=== PATIENT | female | born 1990 | race Caucasian/White ===

== ENCOUNTER → 2019-05-15 15:58 | Outpatient (BNVA) | payer OTHER, SELFPAY | PROVIDERS: Visit Provider Obstetrics & Gynecology | DX: Z34.92 Encounter for supervision of normal pregnancy, unspecified, second trimester (principal) | CPT/HCPCS: 81003; 87491; 87591 ==

== ENCOUNTER → 2019-06-15 09:59 | Outpatient (BNVA) | payer OTHER, SELFPAY | PROVIDERS: Visit Provider Obstetrics & Gynecology | DX: Z01.89 Encounter for other specified special examinations (principal) | CPT/HCPCS: 84315 ==

== ENCOUNTER → 2019-06-19 14:01 | Outpatient (BNVA) | payer OTHER, MEDICAID, SELFPAY | PROVIDERS: Referring Provider Obstetrics & Gynecology; Visit Provider Obstetrics & Gynecology | DX: O30.002 Twin pregnancy, unspecified number of placenta and unspecified number of amniotic sacs, second trimester (principal) | CPT/HCPCS: 76815 ==

== ENCOUNTER → 2019-07-10 10:02 | Outpatient (BNVA) | payer OTHER, MEDICAID, SELFPAY | PROVIDERS: Visit Provider Obstetrics & Gynecology | DX: Z36.89 Encounter for other specified antenatal screening (principal); O30.042 Twin pregnancy, dichorionic/diamniotic, second trimester; Z3A.20 20 weeks gestation of pregnancy | CPT/HCPCS: 76805; 76810 ==

== ENCOUNTER → 2019-07-14 09:08 | Outpatient (BNVA) | payer OTHER, SELFPAY | PROVIDERS: Visit Provider Obstetrics & Gynecology | DX: Z01.89 Encounter for other specified special examinations (principal) | CPT/HCPCS: 84315 ==

== ENCOUNTER → 2019-08-07 08:15 | Outpatient (BNVA) | payer OTHER, SELFPAY | PROVIDERS: Visit Provider Obstetrics & Gynecology | DX: Z01.89 Encounter for other specified special examinations (principal) | CPT/HCPCS: 84315 ==

== ENCOUNTER → 2019-08-15 13:10 | Outpatient (BNVA) | payer OTHER, MEDICAID, SELFPAY | PROVIDERS: Visit Provider Obstetrics & Gynecology | DX: Z36.89 Encounter for other specified antenatal screening (principal); O30.002 Twin pregnancy, unspecified number of placenta and unspecified number of amniotic sacs, second trimester; Z3A.25 25 weeks gestation of pregnancy | CPT/HCPCS: 76816 ==

== ENCOUNTER → 2019-09-04 13:25 | Outpatient (BNVA) | payer OTHER, MEDICAID, SELFPAY | PROVIDERS: Visit Provider Obstetrics & Gynecology | DX: Z34.90 Encounter for supervision of normal pregnancy, unspecified, unspecified trimester (principal); O26.899 Other specified pregnancy related conditions, unspecified trimester; Z67.91 Unspecified blood type, Rh negative; O30.009 Twin pregnancy, unspecified number of placenta and unspecified number of amniotic sacs, unspecified trimester; Z3A.28 28 weeks gestation of pregnancy | CPT/HCPCS: 76816; 82950; 84315; 85027; 86850 ==

== ENCOUNTER 2019-10-12 08:48 | Outpatient (CLI) | payer OTHER, MEDICAID, SELFPAY ==
--- NOTE | 2019-10-12 08:51 | US_ITS ---
WS: [id number] US OB BPP wo NST twins REASON FOR EXAM: Twin Gestation FINDINGS: The cervix was normal measured 5.07 cm and appeared to be closed. Lesions are identified. The heart rate fetus a 150 beats for minute. Twin B heart rate 126 beats for minute. Biophysical profile normal breathing, movement, tone, amniotic fluid with a reading of 8/8. The fetus appears to be at 33 weeks 4 days gestation expected date of confinement November 26, 2019. US/US OB BPP wo NST twins IMPRESSION: Twin pregnancies both appear to be viable Biophysical profile 8/8 The fetuses are at 33 weeks 4 days gestation, expected date of confinement November 26, 2019. Anterior placenta is seen.
[2019-10-12 08:52] VITALS: RESP 17; TEMP 36.9
[2019-10-12 08:57] VITALS: BP 109/60; PULSE 84
[2019-10-12 09:02] VITALS: BMI 33.6
[2019-10-12 09:27] VITALS: BP 118/65; PULSE 77
[2019-10-12 09:57] VITALS: BP 114/65; PULSE 80
[2019-10-12 12:10] VITALS: BP 114/65; PULSE 80
--- NOTE | 2019-10-12 17:03 | PM.ACPR ---
NST (Non-Stress Test) NST : 3 Para: 2,002 Due date: 11/25/25 Gestational age (weeks): 31 Indications: Dichorionic diamniotic twin gestation in third trimester at 31-4/7 weeks gestation Test: NST Time: 08:55 Length of test in Minutes: 29 Contractions: irregular Fetus Fetus 1: Baseline FHR BMP:: 120 Variability: Moderate Accelerations: Present Decelerations: None Reacticity: Reactive Fetus 2: Baseline FHR BMP:: 125 Variability: Moderate Accelerations: Present Decelerations: None Reacticity: Reactive Interpretation/Plan Interpretation by: Austin Page Comments: Twin with reactive NST of each fetus. Irregular contractions present. Biophysical profiles pending
== END 2019-10-12 12:10 | disposition home or self-care (01) ==
LOC: OPOB 08:50 → OBGYN 08:51
PROVIDERS: Visit Provider Obstetrics & Gynecology
DX: O30.009 Twin pregnancy, unspecified number of placenta and unspecified number of amniotic sacs, unspecified trimester (principal); Z3A.00 Weeks of gestation of pregnancy not specified
CPT/HCPCS: 12345; 59025; 76819; 99211

== ENCOUNTER 2019-10-19 10:49 | Outpatient (CLI) | payer OTHER, MEDICAID, SELFPAY ==
[2019-10-19] VITALS (11 sets, daily range): BP systolic 108; BP diastolic 65; PULSE 73–96; RESP 18; TEMP 37; O2SAT 98–99; BMI 35.6
[2019-10-19] MEDS: terbutaline 1 mg/mL INJ 0.25 MG SUBCUT (11:10)
== END 2019-10-19 13:10 | disposition home or self-care (01) ==
PROVIDERS: Visit Provider Obstetrics & Gynecology
DX: O26.899 Other specified pregnancy related conditions, unspecified trimester (principal); Z3A.00 Weeks of gestation of pregnancy not specified; R10.9 Unspecified abdominal pain
CPT/HCPCS: 59025; 84315; 87081; 96372; 99211; J3105

== ENCOUNTER 2019-10-19 23:15 | Inpatient (IN) | payer OTHER, MEDICAID, SELFPAY ==
[2019-10-19 23:10] VITALS: BMI 35.6
[2019-10-19 23:33] VITALS: BP 133/70; PULSE 77
[2019-10-19 23:46] LABS: Basophils # 0.1 10^3/uL (0.0-0.1); Basophils % 0.4 %; Eosinophils % 0.2 %; Hematocrit 33.6 % (37.0-47.0); Hemoglobin 11.2 g/dL (11.5-15.3); Lymphocytes % 25.1 %; Mean Corpuscular HGB Conc 33.3 g/dL (30.0-36.0); Mean Corpuscular Hemoglobin 31.2 pg (28.0-34.0); Mean Corpuscular Volume 93.6 fL (81-99); Mean Platelet Volume 14.1 fL (7.4-10.4); Monocytes % 8.7 %; Neutrophils # 7.8 10^3/uL (1.8-7.7); Neutrophils % 65.3 %; Nucleated Red Blood Cells % 0 %; Platelet Count 128 10^3/cmm (130-400); Red Blood Count 3.59 10^6/uL (4.1-5.3); White Blood Count 11.9 10^3/uL (4.0-10.0)
[2019-10-19 23:47] LABS: Slide Review Slide Review Perform
--- NOTE | 2019-10-19 23:48 | P.HP_ITS ---
Providers/Chief Complaint Admitting Physician: Austin Page MD Primary REVIEW TRAINER: Austin Page MD Chief Complaint: ob triage HPI REVIEW TRAINER History of Present Illness Ella River is a 28 year old female white female 3, para 2-0-0-2 with an LMP of 02/19/2019 and an EDC of 11/26/2019 based on LMP and consistent with a 17- week ultrasound. She has known dichorionic diamniotic twins. She arrived to labor and delivery at approximately 23:30 with complaint of po ssible ruptured membranes. She reports that at about 21:30 she had a gush of fluid and continued to leak. She stated contractions became painful following that. She denied any vaginal bleeding. She reports presence of movement. Review of Systems Const: Denies: fever(s), chills, change in weight or fatigue ENMT: Denies: throat pain or nasal congestion Card: Denies: chest pain or palpitations Resp: Denies: dyspnea, productive cough, non-productive cough or wheezing GI: Denies: abdominal pain, nausea or vomiting : Denies: dysuria, genital pruritis, vaginal bleeding or vaginal discharge Neuro: Denies: headache(s), dizziness or seizure-like activity Psych: Denies: anxiety or depression Endo: Denies: cold intolerance Flako/Lymph: Denies: easy bruising or easy bleeding Medications/Allergies Home Medications Medication Instructions Recorded Confirmed Last Taken Type PNV 153-FA 400 mcg-om3 35 mg-dha See Rx Instructions PO DAILY tab 05/12/19 10/19/19 10/12/19 08:00 History 25 mg-epa 5 mg-fish oil chew tablet ferrous sulfate 325 mg (65 mg 325 mg PO BID 07/14/19 10/19/19 10/12/19 08:00 History iron) tablet folic acid 0.8 mg capsule 0.8 mg PO DAILY 07/14/19 10/19/19 10/12/19 08:00 History diphenhydramine HCl 25 mg capsule 25 mg PO TID PRN 09/04/19 10/19/19 Unknown History famotidine 20 mg tablet 20 mg PO BID #60 tab 10/05/19 10/19/19 10/12/19 08:00 Rx Allergies Allergy/AdvReac Type Severity Reaction Status Date / Time No Known Allergies Allergy Verified 10/19/19 08:05 PFS REVIEW TRAINER PFSH: Medical History No pertinent past medical history Denies diabetes, asthma, hypertension, seizures, DVT/PE Surgical History No history of previous surgery Family History Father Hyperlipidemia Family/Other No problems noted. Social History Smoking and tobacco status: current every day smoker cigarettes Packs smoked per day: 0.25 Years cigarettes smoked: 8 [ Other cigarette details: Started age 20. Most smoked 1 ppd. Denies vaping. ] Alcohol intake: never Substance/Drug Use: never Other details last substance use: Denies drug use Additional social history: Well balanced diet Other Female Reproductive History: Hx Age of Menarche: 11 Duration of menses: 3-5 days Cycle Length: regular History History History 3 Term 2 Miscarriages/Ectopic 0 Living Children 2 Past Pregnancies Del. Date GA/Weeks Outcome Route Wt Inf Gender Labor Lgth Comp. Anesth esia Location 10/03/07 40 live - full term Vaginal 7 lb 14 oz Male [facility] in [place], [place]. 04/09/16 41 live - full term Vaginal 6 lb Female regional Delivered at [facility] in [place], [place] Delivery Date: 10/03/07 named Jules. Delivery by Dr. Austin Page. Denied complications. Austin Page Delivery Date: 04/09/16 named Audelia. Denied complications. Austin Page Care JEANINE Calculator Estimated Delivery Date Method Current WG Current Estimate 11/26/19 LMP (Certain) 34w 4d Other Estimates 11/23/19 Ultrasound #1 35w 0d 11/26/19 Ultrasound #2 34w 4d # 2 Expected Delivery Route/Plan vaginal Specific Issues/Plans * Smoker, * Twin gestation (Male/Female), * Rh Negative. * LGSIL Pap smear-reassess * Desires sterilization * GERD controlled on medication Vitals/I&O/Wt Last Vital Signs Pulse 77 10/19/19 23:33 BP 133/70 10/19/19 23:33 Physical Exam Const: COMMON NORMALS: no acute distress, average body habitus, alert and well nourished GENERAL APPEARANCE: well developed ORIENTATION/CONSCIOUSNESS: Yes oriented to person, Yes oriented to place and Yes oriented to time Resp: COMMON NORMALS: normal respiratory effort and clear to auscultation bilaterally AUSCULTATION: clear to auscultation bilaterally Cardio: COMMON NORMALS: regular rate, regular rhythm, No gallops present (Cardio), No murmurs present (Cardio) and No rub (Cardio) RATE: regular rate RHYTHM: regular rhythm GI: COMMON NORMALS: Soft to palpation, non-tender, No hepatosplenomegaly present and no masses (Except for gravid uterus) AUSCULTATION: Yes normoactive bowel sounds PALPATION: Yes Soft to palpation, Yes No hepatosplenomegaly present and No Hernia present : EXTERNAL FEMALE EXAM: No Hernia present OTHER: Cervix 5 cm dilated per nurse. Grossly ruptured. Neuro: SENSORIUM/ORIENTATION: Yes alert, Yes oriented to person, Yes oriented to place and Yes oriented to time Psych: COMMON NORMALS: normal affect MOOD & AFFECT: Yes euthymic mood Data : 10/19/19 23:23 Other data: Bedside ultrasound performed which showed both babies to be transverse with the presenting one being back down. Both heads were to maternal right. A&P Assessment and plan (1) Multiple gestation with one or more malpresentations in third trimester: Status: Acute (2) premature rupture of membranes: Status: Acute Qualifiers: PROM onset of labor timing: onset of labor within 24 hours of rupture Qualified Code(s): O42.019 - premature rupture of membranes, onset of labor within 24 hours of rupture, unspecified trimester (3) labor: Status: Acute Qualifiers: labor trimester: third trimester (4) Twin : Status: Acute Qualifiers: Multiple gestation type: dichorionic and diamniotic Trimester: third trimester Qualified Code(s): O30.043 - Twin , dichorionic/diamniotic, third trimester (5) Gastroesophageal reflux in in third trimester: Status: Acute (6) Rh negative status during : Status: Acute Qualifiers: Trimester: third trimester Qualified Code(s): O26.893 - Other specified related conditions, third trimester; Z67.91 - Unspecified blood type, Rh negative (7) Request for sterilization: Status: Acute Additional A&P Information at 34-4/7 weeks gestation dichorionic, diamniotic twin gestation with grossly ruptured membranes and labor. The babies are both transverse lie. Based upon position, she is not a candidate for vaginal delivery. Since she is also an active labor, decision is made to proceed to delivery which will be by section. Risks of section were discussed with the patient including bleeding to the point of needing a blood transfusion, infection, and injury to intra-abdominal organs including bowel, bladder, blood vessels, nerves, and ureters. Patient had also stated during the that she did not want any further children and wanted to have her tubes tied. Medicaid consent form had been signed on 09/04/2019. At this point she is still adamant that she wishes to proceed with sterilization and wants the tubes completely removed. I reviewed with her that this type of sterilization can never be reversed. She is still adamant that she wishes to proceed with this. Patient is being prepared for a primary section with bilateral tubal ligation. Circuit Board Repair Technician on-call, Dr. Ferrer, has been notified. Attestations Medical Necessity Statement*: Patient in active labor with ruptured membranes with twin gestation. Coding Level of Care Code Acute People Greeter for Chg Fwd Diagnoses Multiple gestation with one or more malpresentations in third trimester O30.93; O32.9XX0 premature rupture of membranes O42.019 PROM onset of labor timing: onset of labor within 24 hours of rupture labor O60.00 labor trimester: third trimester Twin O30.043 Multiple gestation type: dichorionic and diamniotic Trimester: third trimester Gastroesophageal reflux in in third trimester O99.613; K21.9 Rh negative status during O26.893; Z67.91 Trimester: third trimester Request for sterilization Z30.2
[2019-10-19] MEDS: citric acid-sodium citrate 30 mL UDC PO (23:53)
[2019-10-19] MEDS: famotidine 20 mg/2 mL INJ IVP (23:54)
[2019-10-19] MEDS: metoclopramide 5 mg/mL SDV 2 mL 10 MG IVP (23:54)
[2019-10-19] MEDS: lactated ringers 1,000 ML 999 ML IV (23:56)
[2019-10-20] VITALS (26 sets, daily range): BP systolic 98–142; BP diastolic 58–102; PULSE 61–101; RESP 16–18; TEMP 36.5–36.7; O2SAT 97–98
--- NOTE | 2019-10-20 00:04 | P.ANESASSM_ITS ---
Pre-Anesthetic Assessment Pre-Anesthetic Assessment: Height/Weight: Height 1.57 m Pulse BP 77 133/70 10/19/19 23:33 10/19/19 23:33 Preop Diagnosis: IUP Proposed Procedure: Spinal Familial anesthetic complications: None Was Beta Pierce taken within 24 hours: N/A Last intake: Solids 1430 Liquids (water) 2130 Social: Social History: Tobacco and No alcohol Exam: Pre-Anes Outpt Exam: alert, oriented x 3, clear to auscultation bilaterally and regular rate & rhythm Airway: Cervical ROM: WNL MP: 3 Dentition: Chipped Additional comments: Missing Anesthetic Plan: ASA status: 2E Anesthesia: Regional (specify below) Risk of > 500 ml blood loss (7ml/kg in children): Yes, adequate IV access and fluids planned Other Pertinent Information: twins Meds/Allergies Current Medications: Current Medications Generic Name Dose Route Start Last Admin Trade Name Freq PRN Reason Stop Dose Admin Lactated Ringer's 1,000 mls @ 999 m ls/hr 10/19/19 23:39 10/19/19 23:56 Lactated Ringers IV 10/20/19 00:39 999 mls/hr .Q1H1M ONE Administration PFSH Anesthesia PFSH: Medical History No pertinent past medical history Denies diabetes, asthma, hypertension, seizures, DVT/PE Surgical History No history of previous surgery Family History Father Hyperlipidemia Family/Other No problems noted. Social History Smoking and tobacco status: current every day smoker cigarettes Packs smoked per day: 0.25 Years cigarettes smoked: 8 [ Other cigarette details: Started age 20. Most smoked 1 ppd. Denies vaping. ] Alcohol intake: never Substance/Drug Use: never Other details last substance use: Denies drug use Additional social history: Well balanced diet Data Anesthesia CBC & Chem 7: 10/19/19 23:23 Other Labs: Laboratory Results - last 48 hr 10/19/19 23:23 WBC 11.9 H RBC 3.59 L Hgb 11.2 L Hct 33.6 L MCV 93.6 MCH 31.2 MCHC 33.3 RDW 13.0 Plt Count 128 L MPV 14.1 H Neut % (Auto) 65.3 Lymph % (Auto) 25.1 Kingfisher % (Auto) 8.7 Eos % (Auto) 0.2 Baso % (Auto) 0.4 Neut # (Auto) 7.8 H Lymph # (Auto) 3.0 Kingfisher # (Auto) 1.0 H Eos # (Auto) 0.0 Baso # (Auto) 0.1 Nucleated RBC % (auto) 0 Nucleated RBCs # 0.0 Cardiac Studies: No Data to Display
[2019-10-20] MEDS: miSOPROStol 200 mcg Tablet 800 MCG PR (00:34)
[2019-10-20] MEDS: oxytocin 30 UNIT/500 ML BAG 600 UNIT IV (00:35)
--- NOTE | 2019-10-20 00:47 | PM.DELIVERY ---
Delivery Note: Date of delivery: October 20, 2019 Pre-delivery diagnoses: 1. premature rupture of membranes in third trimester 2. labor in third trimester 3. Dichorionic diamniotic twin gestation with malpresentation of both fetuses. 4. Maternal Rh- status in third trimester 5. at 34-5/7 weeks gestation Post-delivery diagnoses: 1. premature rupture of membranes in third trimester - delivered 2. labor in third trimester - delivered 3. Dichorionic diamniotic twin gestation with malpresentation of both fetuses. 4. Maternal Rh- status - delivered 5. at 34-5/7 weeks gestation 6. Viable twin newborns (male/female) Procedure: Spontaneous vaginal delivery of twins gestation (breech/breech). Op report anesthesia: None Delivering Physician: Dr. Austin Page Estimated blood loss (mL): 150 Pre-Delivery Course: Patient is a 28-year-old white female 3, para 2-0-0-2 with dichorionic diamniotic twin gestation with an LMP of 02/19/2019 and an EDC of 11/26/2019 based on LMP and consistent with a 17-week ultrasound. She presented to L&D at 23:05 on 10/19/2019 complaining of rupture of membranes and contractions. She reported having a gush of fluid at about 21:30 with onset of contractions afterwards. On presentation to L&D, she was noted to be grossly ruptured and reported to be 5 cm dilated by the nurse. Nurse was unsure of presentation. (In the office earlier, she was noted to be breech/breech). On my arrival, bedside ultrasound was performed which confirmed transverse lie of both fetuses with head to maternal right. Because of the ruptured membranes, labor, and malpresentation presenting fetus, decision was made to proceed to a section. Delivery: Just before taking patient to the operating room, patient reported that something did not feel right and was hurting more. Exam was performed and buttocks was found to be at a +3 station. Patient pushed once and the buttocks delivered. The rest the baby rapidly delivered up to the shoulders. The baby was rotated in a counterclockwise direction and the right arm was swept out. The baby was rotated in a clockwise direction and the left arm was swept out. The body of the baby was elevated and head quickly delivered. Time of delivery was 00:12 and this was a male baby. Baby was spontaneously crying. Cord was clamped and cut and baby handed off to Dr. Ferrer and the waiting nurses. Internal uterine exam was performed and the buttocks was presenting towards the cervix. Membranes were ruptured at 00:17 and with maternal pushing the buttocks was directed through the cervix and vagina. Following delivery of the buttocks, both legs were swept out and the baby was delivered up to the shoulders. It was rotated in a clockwise direction and the left arm was swept out. It was rotated in a counterclockwise direction and the right arm was swept out. The body of the baby was elevated and the head easily delivered. Time of delivery for Baby B was 00:20 and it was a girl. The cord was clamped and cut and the baby was handed off to Dr. Ferrer and the waiting nurses. Cord blood was obtained from both umbilical cords. Pitocin bolus was started. Placenta delivered intact by simple expression at 00:30. Cervix and vagina were palpated and noted to be intact. Labia were inspected and noted be intact except for superficial abrasions which required no repair. Patient received 800 mcg of Cytotec rectally prophylactically. FINDINGS 1. Baby A - Male, asael breech delivery, delivery time 00:12, weight 5 lb 2.5 oz (2340 g), length 18 in, APGARS 9 at 1 minute and 9 at 5 minutes. 2. Baby B - Female, asael breech delivery, delivery time 00:20, weight 4 lb 9 oz (2070 g), length 18 in, APGARS 9 at 1 minute and 9 at 5 minutes. 3. Three-vessel cords with no nuchal cords. 4. Fused placenta. Baby A cord was a membranous cord insertion with the cord inserting approximately 5 cm from the edge of the placental disc. Baby B cord was an eccentric insertion in the placental disc. Post-Delivery Status: Babies were transferred to the nursery. Mother was left to recover in satisfactory condition. A&P Assessment and plan (1) labor: Status: Acute Qualifiers: labor trimester: third trimester (2) Gastroesophageal reflux in in third trimester: Status: Acute (3) Rh negative status during : Status: Acute Qualifiers: Trimester: third trimester Qualified Code(s): O26.893 - Other specified related conditions, third trimester; Z67.91 - Unspecified blood type, Rh negative (4) Multiple gestation with malpresentation of one fetus or more, delivered: Status: Acute (5) premature rupture of membranes, delivered, current hospitalization: Status: Acute (6) Twin , delivered vaginally, current hospitalization: Status: Acute Coding Level of Care Code Acute Recreation Facility Attendant for Chg Fwd Diagnoses labor O60.00 labor trimester: third trimester Gastroesophageal reflux in in third trimester O99.613; K21.9 Rh negative status during O26.893; Z67.91 Trimester: third trimester Multiple gestation with malpresentation of one fetus or more, delivered O30.90; O32.9XX0 premature rupture of membranes, delivered, current hospitalization O42.919 Twin , delivered vaginally, current hospitalization O30.009
--- NOTE | 2019-10-20 01:29 | PM.ACPR ---
Procedure/Consent Procedure Narrative: Called by nurse due to heavy bleeding and passing clots. Nurse had rubbed the uterus at time of routine checking and found uterus to be above the navel. Multiple clots were expressed. At approximatley 01:00, I performed a bimanual exam and expressed several more clots from the uterus. The uterus was then firm and was 1 fingerbreath below umbilicus. At this point, patient was receiving IV Pitocin and and had previously received Cytotec 800 mcg rectally. She was then started on IV Tranexamic acid EBL: 385 ml by weight (of clots and blood).
[2019-10-20] MEDS: carboprost tromethamine 250 mcg/mL Amp IM (02:03)
[2019-10-20] MEDS: prenatal vitamin Capsule 1 CAP PO (10:04)
[2019-10-20] MEDS: docusate sodium 100 mg Capsule PO (10:06)
--- NOTE | 2019-10-20 10:40 | PC.NURSE ---
IV Removal This nurse removed second peripheral IV 18G in right hand that was placed at 0245 by Mariana Jimenez RN. Catheter was intact upon removal. Patient tolerated procedure well.
--- NOTE | 2019-10-20 12:21 | PC.RESP ---
Smoking Cessation information and a schedule of classes to patient.
--- NOTE | 2019-10-20 12:30 | PM.DCS ---
Discharge Providers Date of Admission: 10/19/19 23:15 Date of Discharge: October 20, 2019 Attending Provider at Admission: Austin Page MD Attending Provider at Discharge: Austin Page MD Diagnoses at Discharge Discharge Diagnosis (1) labor: Status: Resolved Qualifiers: Fetus number: fetus 2 of multiple gestation labor delivery status: with delivery in third trimester labor trimester: third trimester Qualified Code(s): O60.14X2 - labor third trimester with delivery third trimester, fetus 2 (2) Gastroesophageal reflux in in third trimester: Status: Resolved (3) Rh negative status during : Status: Acute Qualifiers: Trimester: third trimester Qualified Code(s): O26.893 - Other specified related conditions, third trimester; Z67.91 - Unspecified blood type, Rh negative (4) Multiple gestation with malpresentation of one fetus or more, delivered: Status: Resolved (5) premature rupture of membranes, delivered, current hospitalization: Status: Resolved (6) Twin , delivered vaginally, current hospitalization: Status: Acute Reason for Visit Reason for Visit: ob triage Hospital Course Hospital Course: Patient is a 28-year-old white female 3, para 2-0-0-2 with an LMP of 02/19/2019 and an EDC of 11/26/2019 based on LMP and consistent with a 17-week ultrasound. She was known to have dichorionic diamniotic twins. She presented to labor and delivery complaining of possible rupture membranes. She was found to be grossly ruptured. Water had broke at approximately 21: 30. She had started tootie following that. Both babies were noted to be transverse transverse presentation. As a result, she was being prepared for primary section. Just prior to going to the OR, patient was reporting feeling neck something was not right and when checked the buttocks was at a +2 station. As a result the first baby was delivered as a vaginal breech. Second baby was also delivered as a asael breech delivery. No lacerations were present. She delivered on 10/20/2019. Baby A - Male, asael breech delivery, delivery time 00:12, weight 5 lb 2.5 oz (2340 g), length 18 in, APGARS 9 at 1 minute and 9 at 5 minutes. Baby B - Female, asael breech delivery, delivery time 00:20, weight 4 lb 9 oz (2070 g), length 18 in, APGARS 9 at 1 minute and 9 at 5 minutes. Following delivery, she had bleeding. She had been given IV Pitocin immediately following delivery and was prophylactically given Cytotec 800 mcg rectally. Following increased bleeding, she was also given tranexamic acid and then Hemabate. She then had no further increased bleeding. By later in the day of day of delivery, patient was doing well. Due to the baby's having been transferred out of the hospital, patient was wanting to be released. By noon she was tolerating a regular diet without nausea vomiting. Her pain was well controlled. She was ambulating without lightheadedness or dizziness. Her bleeding was well controlled. She was having no other issues or concerns. Physical exam: As documented below. Plan Discharged to home. Discharge instructions discussed with patient. Patient to follow-up in the office in approximately 6 weeks. Physical Exam Const: COMMON NORMALS: no acute distress, average body habitus, alert and well nourished GENERAL APPEARANCE: well developed ORIENTATION/CONSCIOUSNESS: Yes oriented to person, Yes oriented to place and Yes oriented to time Resp: COMMON NORMALS: normal respiratory effort and clear to auscultation bilaterally AUSCULTATION: clear to auscultation bilaterally Cardio: COMMON NORMALS: regular rate, regular rhythm, No gallops present (Cardio) and No rub (Cardio) RATE: regular rate RHYTHM: regular rhythm GI: COMMON NORMALS: Soft to palpation, non-tender, No hepatosplenomegaly present and no masses AUSCULTATION: Yes normoactive bowel sounds PALPATION: Yes Soft to palpation, Yes No hepatosplenomegaly present and No Hernia present : EXTERNAL FEMALE EXAM: No Hernia present Extremity: COMMON NORMALS: no calf tenderness GENERAL: Yes edema (1+ lower extremity) Neuro: SENSORIUM/ORIENTATION: Yes alert, Yes oriented to person, Yes oriented to place and Yes oriented to time Psych: COMMON NORMALS: normal affect MOOD & AFFECT: Yes euthymic mood Discharge Data Data Completed and Pending: Pending at discharge Category Date Time Status Hemagram Timed Lab 10/20/19 10:00 Ordered Pathology: Surgic al [PTH] Routine Pth 10/20/19 11:45 Ordered Labs from last 24 hours 10/19/19 10/19/19 23:23 23:23 WBC 11.9 H RBC 3.59 L Hgb 11.2 L Hct 33.6 L MCV 93.6 MCH 31.2 MCHC 33.3 RDW 13.0 Plt Count 128 L MPV 14.1 H Neut % (Auto) 65.3 Lymph % (Auto) 25.1 [place] % (Auto) 8.7 Eos % (Auto) 0.2 Baso % (Auto) 0.4 Neut # (Auto) 7.8 H Lymph # (Auto) 3.0 [place] # (Auto) 1.0 H Eos # (Auto) 0.0 Baso # (Auto) 0.1 Nucleated RBC % (a uto) 0 Nucleated RBCs # 0.0 Blood Type O Negative Rho(D) Type Negative Vitals: Last Vital Signs Temp 97.9 F 10/20/19 11:20 Pulse 91 10/20/19 11:20 Resp 18 10/20/19 11:20 BP 103/64 10/20/19 11:20 Pulse Ox 97 10/20/19 11:20 Discharge Plan Discharge Patient Disposition: Home, Self-Care Condition: Stable Prescriptions: New ibuprofen 800 mg Tablet 800 mg PO TID PRN (Reason: pain) Qty: 40 RF: 0 Continued Gummies 400 mcg-35 mg- 25 mg-5 mg tablet,chewable See Rx Instructions PO DAILY RF: 0 diphenhydramine HCl [Benadryl] 25 mg capsule 25 mg PO TID PRN (Reason: Allergy Symptoms) RF: 0 Discontinued folic acid 0.8 mg capsule 0.8 mg PO DAILY RF: 0 ferrous sulfate 325 mg (65 mg iron) tablet 325 mg PO BID RF: 0 famotidine [Pepcid] 20 mg tablet 20 mg PO BID Qty: 60 RF: 3 Discharge Orders: Discharge Order (Routine); Ordered 10/20/19 Ordered By: Austin Page Referrals: Austin Page MD [Physician] - 12/01/19 1:00 pm ( exam ) Discharge Diet: Regular Discharge Activity: Resume usual activity Patient Instructions: Ibuprofen (By mouth), Diphenhydramine (By mouth), Vitamins (By mouth), OB Discharge Report, OB Proud Parent Packet, OB Vaginal Deliveries - [facility] Discharge Date/Time: 10/20/19 14:00 Discharge Attestations Time Spent in Discharge Care*: less than 30 min Quality Metrics Clinical Quality Measures During this hospital stay, did patient experience: None Coding Level of Care Code Acute Display Card Writer for Chg Fwd Exam Detailed Diagnoses labor O60.14X2 Fetus number: fetus 2 of multiple gestation labor delivery status: with delivery in third trimester labor trimester: third trimester Gastroesophageal reflux in in third trimester O99.613; K21.9 Rh negative status during O26.893; Z67.91 Trimester: third trimester Multiple gestation with malpresentation of one fetus or more, delivered O30.90; O32.9XX0 premature rupture of membranes, delivered, current hospitalization O42.919 Twin , delivered vaginally, current hospitalization O30.009
[2019-10-20 12:36] LABS: Hemoglobin 8.7 g/dL (11.5-15.3); Mean Corpuscular HGB Conc 33.5 g/dL (30.0-36.0); Mean Corpuscular Hemoglobin 31.1 pg (28.0-34.0); Mean Corpuscular Volume 92.9 fL (81-99); Mean Platelet Volume 13.8 fL (7.4-10.4); Platelet Count 102 10^3/cmm (130-400); Red Cell Distribution Width 12.8 % (12.1-15.1); White Blood Count 9.5 10^3/uL (4.0-10.0)
== END 2019-10-20 14:00 | disposition home or self-care (01) | DRG 807 ==
LOC: OPOB 23:22 → OBGYN 23:22 → OPOB 10-20 00:35 → OBGYN 10-20 00:35
PROVIDERS: Admitting Provider Obstetrics & Gynecology; Visit Provider Obstetrics & Gynecology
DX: O60.14X2 Preterm labor third trimester with preterm delivery third trimester, fetus 2 (principal); Z37.2 Twins, both liveborn; O30.043 Twin pregnancy, dichorionic/diamniotic, third trimester; O99.334 Smoking (tobacco) complicating childbirth; F17.210 Nicotine dependence, cigarettes, uncomplicated; O99.284 Endocrine, nutritional and metabolic diseases complicating childbirth; K21.9 Gastro-esophageal reflux disease without esophagitis; Z30.2 Encounter for sterilization; Z3A.34 34 weeks gestation of pregnancy; O64.8XX1 Obstructed labor due to other malposition and malpresentation, fetus 1; O64.8XX2 Obstructed labor due to other malposition and malpresentation, fetus 2; O42.013 Preterm premature rupture of membranes, onset of labor within 24 hours of rupture, third trimester
CPT/HCPCS: 12345; 36415; 59025; 59409; 80500; 83986; 85025; 85027; 85460; 86850; 86870; 86900; 88307; 90384; 96372; 96375; 99211; J2274; J2590; J2765; J3490

== ENCOUNTER → 2019-12-01 14:00 | Outpatient (BNVA) | payer OTHER, MEDICAID, SELFPAY | PROVIDERS: Visit Provider Obstetrics & Gynecology | DX: R87.612 Low grade squamous intraepithelial lesion on cytologic smear of cervix (LGSIL) (principal); Z39.2 Encounter for routine postpartum follow-up | CPT/HCPCS: 88175 ==

== ENCOUNTER → 2019-12-06 14:27 | Outpatient (BNVA) | payer OTHER, SELFPAY | PROVIDERS: Visit Provider Obstetrics & Gynecology | DX: Z30.09 Encounter for other general counseling and advice on contraception (principal); Z30.017 Encounter for initial prescription of implantable subdermal contraceptive | CPT/HCPCS: 81025 ==

== ENCOUNTER → 2020-12-02 09:20 | Outpatient (BNVA) | payer OTHER, SELFPAY | PROVIDERS: Visit Provider Obstetrics & Gynecology | DX: Z01.419 Encounter for gynecological examination (general) (routine) without abnormal findings (principal); R68.82 Decreased libido; R87.612 Low grade squamous intraepithelial lesion on cytologic smear of cervix (LGSIL) | CPT/HCPCS: 84403; 84443; 88175 ==

== ENCOUNTER → 2021-01-02 13:45 | Outpatient (BNVA) | payer OTHER, SELFPAY | PROVIDERS: Visit Provider Obstetrics & Gynecology | DX: Z30.09 Encounter for other general counseling and advice on contraception (principal); Z30.2 Encounter for sterilization | CPT/HCPCS: 87635 ==

== ENCOUNTER 2021-01-07 06:11 | Day surgery (SDC) | payer OTHER, MEDICAID, SELFPAY ==
[2021-01-06 08:23] VITALS: BMI 27.4
[2021-01-07] VITALS (7 sets, daily range): BP systolic 99–119; BP diastolic 63–81; PULSE 64–99; RESP 12–18; TEMP 36.1–36.5; O2SAT 97–99
[2021-01-07] MEDS: acetaminophen 1,000 MG/100 ML PIGGYBACK 400 MG IV (06:40)
[2021-01-07] MEDS: sodium chloride 0.9% 1,000 ML 30 ML IV (06:45)
--- NOTE | 2021-01-07 06:58 | W.PM.OPSUD ---
Surgery/Procedure H&P Update DATE OF PROCEDURE: January 07, 2021 DATE H&P PERFORMED: 01/02/21 H&P UPDATE INFORMATION: I have reviewed H&P completed within last 30 days, I have examined patient prior to procedure and No changes to prior documentation PREOP DIAGNOSIS: desires sterilization PLANNED PROCEDURE: Operation Date: 01/07/21 07:00 Proposed Procedures p Laparoscopic bilateral Salpingectomy 88387 z30.2(Bilateral) - Fe Fry MD
[2021-01-07] MEDS: ketorolac 30 mg/mL INJ IVP (07:00)
[2021-01-07] MEDS: CELEcoxib 200 mg Capsule 400 MG PO (07:00)
[2021-01-07] MEDS: gabapentin 300 mg Capsule PO (07:00)
--- NOTE | 2021-01-07 07:00 | P.ANESASSM_ITS ---
Pre-Anesthetic Assessment Pre-Anesthetic Assessment: Height/Weight: Height 1.57 m Weight 68.039 kg Temp Pulse Resp BP Pulse Ox 97.3 F L 84 18 102/63 97 01/07/21 06:32 01/07/21 06:32 01/07/21 06:32 01/07/21 06:32 01/07/21 06:32 Preop Diagnosis: desires sterilization Proposed Procedure: Operation Date: 01/07/21 07:00 Proposed Procedures p Laparoscopic bilateral Salpingectomy 98228 z30.2(Bilateral) - Fe Fry MD Was Beta Pierce taken within 24 hours: N/A Was Clonidine taken within 24 hours: N/A Last intake: Intake Last Liquid Date 01/06/21 Last Liquid Time 21:00 Last Solid Date 01/06/21 Last Solid Time 21:00 Social: Social History: Tobacco Packs per day: 1 Pack years: 15 Exam: Pre-Anes Outpt Exam: alert, oriented x 3, clear to auscultation bilaterally and regular rate & rhythm Airway: Submandibular: WNL Cervical ROM: WNL MP: 1 Dentition: Chipped and Partials History/ROS: No significant history except as noted and No significant c omplaints Pulmonary: Pulmonary: None reported CV/HEM: CV/HEM: None reported : : None reported Hepatic: Hepatic: None reported GI: GI: None reported Metabolic: Metabolic: None reported Musc/skel: Musc/skel: None reported Anesthetic Plan: ASA status: 2 Anesthesia: Anesthesia Evaluation and General Risk of > 500 ml blood loss (7ml/kg in children): No PFSH Anesthesia PFSH: Medical History Abnormal Pap smear of cervix 05/15/2019: Low-grade MARCELA. Blood type O- Surgical History No history of previous surgery Family History Father Hyperlipidemia Family/Other No problems noted. Grandfather Cancer Maternal - unsure of type-spread all over Sister Stroke Denies family history of Diabetes CAD (coronary artery disease) Clotting disorder Chronic kidney disease (CKD) Bleeding disorder Hypertension Thyroid disease Social History Smoking and tobacco status: current every day smoker cigarettes Packs smoked per day: 0.25 Years cigarettes smoked: 8 [ Other cigarette details: Started age 20. Most smoked 1 ppd. Denies vaping. ] Alcohol intake: never Other details last substance use: Denies drug use Female Reproductive History: Date of last menstrual period: 12/31/20 Data Anesthesia Cardiac Studies: No Data to Display
[2021-01-07 07:05] LABS: OR HCG Qualitative Urine Negative (Negative)
[2021-01-07 07:10] LABS: Basophils # 0.1 10^3/uL (0.0-0.1); Basophils % 0.6 %; Eosinophils # 0.1 10^3/uL (0.0-0.8); Eosinophils % 1.4 %; Hematocrit 41.2 % (37.0-47.0); Hemoglobin 14.5 g/dL (11.5-15.3); Lymphocytes # 2.3 10^3/uL (0.8-4.8); Lymphocytes % 29.5 %; Mean Corpuscular HGB Conc 35.2 g/dL (30.0-36.0); Mean Corpuscular Hemoglobin 32.1 pg (28.0-34.0); Mean Corpuscular Volume 91.2 fl (81-99); Mean Platelet Volume 12.8 fL (7.4-10.4); Monocytes # 0.6 10^3/uL (0.2-0.9); Monocytes % 7.2 %; Neutrophils % 60.9 %; Nucleated Red Blood Cells % 0 %; Platelet Count 197 10^3/cmm (130-400); Red Blood Count 4.52 10^6/uL (4.1-5.3); Red Cell Distribution Width 12.1 % (12.1-15.1); White Blood Count 7.7 10^3/uL (4.0-10.0)
[2021-01-07 07:23] LABS: Alanine Aminotransferase 11 U/L (0-33); Albumin Level 4.1 g/dL (3.5-5.2); Alkaline Phosphatase 69 IU/L (35-105); Anion Gap 14.8 (5-19); Aspartate Amino Transferase 14 U/L (0-32); Blood Urea Nitrogen 5 mg/dL (6-20); Calcium 8.8 mg/dL (8.5-10.5); Carbon Dioxide 25 mmol/L (22-29); Chloride 104 mmol/L (98-107); Glomerular Filtration Rate 116.6 mL/min (90-130); Glucose 95 mg/dL (65-115); Osmolality Calculated 287 mOsm/kg (285-295); Potassium 3.8 mmol/L (3.5-5.1); Sodium 140 mmol/L (136-145); Total Bilirubin 0.2 mg/dL (0.15-1.2); Total Protein 7.1 g/dL (6.6-8.7)
--- NOTE | 2021-01-07 08:40 | PM.OP ---
Operative Report Date of procedure: January 07, 2021 Pre-op Diagnosis: desires sterilization Post-op diagnosis: same Post-op Findings: normal appearing uterus, tubes and ovaries Procedure Done: laparoscopic bilateral salpingectomy Specimens removed/disposition: bilateral fallopian tubes to pathology Surgeon: Fe Fry Anesthesia: General Estimated blood loss (mL): 5 IV fluids (mL): 800 Urine output (mL): 250 Complications: none Condition: stable Disposition: PACU Brief History: The patient is a who presented to clinic with request for permanent sterilization. Procedure: The patient was taken to the operating room where general anesthesia was administered and found to be adequate. She was prepped and draped in the normal sterile fashion in the dorsal lithotomy position in [facility]. A Alex catheter was placed. A weighted speculum was placed into the vagina and the anterior lip of the cervix grasped with a single-tooth tenaculum. A [employer] uterine manipulator was placed. The gloves were changed and attention was turned to the laparoscopic portion of the case. A 5 mm infraumbilical incision was made. The 5 mm trocar was placed using the easy view trocar. Intra-abdominal placement was confirmed and CO2 gas was used to insufflate the abdomen. Using direct visualization and illumination of the abdominal wall two 5 mm incisions were made low and lateral. One on the left and one on the right. The 5mm trochars were then placed under direct visualization. Using the uterine manipulator and the grasper the fallopian tubes were identified and grasped and using the laparoscopic cautery, the fallopian tube was clamped cauterized and cut. First on the right, then on the left. There was excellent hemostasis post removal of the bilateral tubes. Pictures were taken. All instruments were removed. The abdomen was desufflated. The incisions were closed with 4-0 Vicryl. The patient tolerated the procedure well. Sponge lap and needle counts were correct x3. She was taken to the recovery room in stable condition.
--- NOTE | 2021-01-07 08:45 | P.PCN_ITS ---
PACU note PACU note: VSS, Good respiratory effort, report to BENCH CHEMIST Post-Anesthesia Exam: awake
--- NOTE | 2021-01-07 08:45 | PM.PACU ---
PACU note PACU note: VSS, Good respiratory effort, report to MASTER CARPENTER Post-Anesthesia Exam: awake
--- NOTE | 2021-01-07 08:50 | PM.DCS ---
Discharge Providers Date of Discharge: January 07, 2021 Attending Provider at Discharge: Fe Fry MD Diagnoses at Discharge Discharge Diagnosis (1) Postoperative state: Status: Acute Reason for Visit Reason for Visit: lap kelly salpingectomy Hospital Course Hospital Course The patient was admitted for surgery. She did well postoperatively and was ready for discharge. Physical Exam Urinary Catheter Management^: Alex: Cath Placed During This Visit: yes Urinary Catheter Date of Insertion: 01/07/21 Urinary Catheter Time of Insertion: 07:45 Discharge Data Data Completed and Pending: Pending at discharge Category Date Time Status ES surgery / GI i mages Routine Exams 01/07/21 06:44 Ordered Urine Culture Rou vince Lab 01/07/21 07:48 Received Pathology: Surgic al [PTH] Routine Pth 01/07/21 08:44 Ordered Labs from last 24 hours 01/07/21 01/07/21 01/07/21 06:50 06:50 06:21 WBC 7.7 RBC 4.52 Hgb 14.5 Hct 41.2 MCV 91.2 MCH 32.1 MCHC 35.2 RDW 12.1 Plt Count 197 MPV 12.8 H Neut % (Auto) 60.9 Lymph % (Auto) 29.5 [place] % (Auto) 7.2 Eos % (Auto) 1.4 Baso % (Auto) 0.6 Neut # (Auto) 4.70 Lymph # (Auto) 2.3 [place] # (Auto) 0.6 Eos # (Auto) 0.1 Baso # (Auto) 0.1 Nucleated RBC % (a uto) 0 Nucleated RBCs # 0.0 Sodium 140 Potassium 3.8 Chloride 104 Carbon Dioxide 25 Anion Gap 14.8 BUN 5 L Creatinine 0.6 GFR Calculation 116.6 Glucose 95 Calculated Osmolal ity 287 Calcium 8.8 Total Bilirubin 0.2 AST 14 ALT 11 Alkaline Phosphata se 69 Total Protein 7.1 Albumin 4.1 Globulin 3.0 Urine HCG, Qual Negative Vitals: Last Vital Signs Temp 97.2 F L 01/07/21 08:41 Pulse 84 01/07/21 08:45 Resp 12 01/07/21 08:45 BP 107/81 01/07/21 08:45 Pulse Ox 99 01/07/21 08:45 Discharge Plan Discharge Patient Disposition: Home Condition: Stable Prescriptions: New hydrocodone-acetaminophen 5-325 mg tablet 1 tab PO Q4H PRN (Reason: pain) Qty: 30 RF: 0 Continued Nexplanon 68 mg implant subdermal RF: 0 Discharge Orders: Discharge Order (Routine); Ordered 01/07/21 Ordered By: Fe Fry Discharge Attestations Time Spent in Discharge Care*: less than 30 min Quality Metrics Clinical Quality Measures During this hospital stay, did patient experience: None Coding Level of Care Code Acute [facility] DC note Diagnoses Postoperative state Z98.890
[2021-01-07] MEDS: ondansetron 2 mg/ML SDV 2 mL 4 MG IVP ×2 (08:52→09:40)
[2021-01-07] MEDS: HYDROcodone-acetaminophen 5-325 mg Tablet 1 TAB PO (09:41)
== END 2021-01-07 11:00 | disposition home or self-care (01) ==
PROVIDERS: Anesthesiology; Visit Provider Obstetrics & Gynecology
PROC: (CPT 58661; principal; 2021-01-07 07:00)
DX: Z30.2 Encounter for sterilization (principal); F17.210 Nicotine dependence, cigarettes, uncomplicated
CPT/HCPCS: 58661; 36415; 80053; 81025; 84703; 85025; 87086; 88302; J0690; J1100; J1885; J2370; J2405; J2704; J2710; J3010; J3490; J7030